=== PATIENT | male | born 1990 | race Caucasian/White ===

== ENCOUNTER 2017-11-28 15:33 | Emergency (ER) | payer SELFPAY ==
[2017-11-28 15:38] VITALS: BP 114/77
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
== END 2017-11-28 15:52 ==
LOC: ER 15:49
DX: F10.920 Alcohol use, unspecified with intoxication, uncomplicated (principal)
CPT/HCPCS: 99281